=== PATIENT | female | born 1970 | race Caucasian/White ===

== ENCOUNTER 2018-02-16 06:54 | Day surgery (SDC) | END 2018-02-16 14:00 | disposition home or self-care (01) ==

== ENCOUNTER 2018-04-12 07:12 | Day surgery (SDC) | END 2018-04-12 14:55 | disposition home or self-care (01) ==

== ENCOUNTER 2018-05-19 14:33 | Inpatient (IN) | END 2018-05-23 13:50 | disposition home or self-care (01) | DRG 809 ==